=== PATIENT | male | born 1995 | race Caucasian/White ===

== ENCOUNTER 2023-03-16 10:58 | Outpatient (CLI) | payer MEDICAID, SELFPAY | END 2023-03-16 10:59 | disposition home or self-care (01) | LOC: ANHAUDIO 10:59 | PROVIDERS: PCP Family Medicine; Visit Provider Otolaryngology | DX: H91.92 Unspecified hearing loss, left ear (principal) | CPT/HCPCS: 92552; 92556; 92567 ==